=== PATIENT | female | born 1945 | race Caucasian/White ===

== ENCOUNTER → 2017-06-10 | Outpatient (CLI) | payer MEDICARE ==
--- NOTE | 2017-06-12 08:45 | RADIOLOGY REPORT PS360 ---
DIG MAMM-SCREEN FAREED W/CAD CAD Screening COMPARISON: Digital mammograms 09/07/2014 and 03/06/2016 INDICATION: There is a history of breast cancer in patient's paternal aunt. There has been previous biopsy left breast for benign disease. TECHNIQUE: Standard CC and MLO images were obtained. R2 CAD reviewed. FINDINGS: The breasts are of low density composed primarily of fat with very minimal scattered fibroglandular densities noted in each breast. There is a benign-appearing calcification right breast. There is no suspicious lesion and no suspicious microcalcifications. There are small nodes in right axilla. IMPRESSION: Fatty type breast parenchyma with no suspicious lesion seen recommend yearly follow-up BI-RADS CATEGORY: 2_Benign RECOMMENDED FOLLOWUP: 12M 12 MONTH FOLLOW-UP (A letter has been sent to the patient regarding results of the study.)
== END ==
LOC: RAD 09:19
DX: Z12.31 Encounter for screening mammogram for malignant neoplasm of breast (principal)
CPT/HCPCS: G0202